=== PATIENT | male | born 2000 | race Caucasian/White ===

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

== ENCOUNTER 2022-07-29 05:45 | Outpatient (CLI) | payer BC, MEDICAID ==
[~2022-07-29] VITALS: Ht 167.6 cm; Wt 82.0 kg
[~2022-07-29 05:45] MED LIST changes: -CATHETER FLUSH 10 ML SYR IVP PRN
== END 2022-07-29 15:58 | disposition home or self-care (01) ==
LOC: PREOP 05:45
PROVIDERS: ATTEND Surgery
DX: Z01.818 Encounter for other preprocedural examination (principal)

== ENCOUNTER 2022-08-01 21:57 | Emergency (ER) | payer BC, MEDICAID ==
[~2022-08-01] VITALS: Ht 167.6 cm; Wt 82.0 kg
[2022-08-01] MEDS ORDERED: LEVO-55 (22:07)
[2022-08-01] MEDS ORDERED: KETOROLAC 30 MG/ML VIAL IVP STA (22:15)
[2022-08-01] MEDS ORDERED: LACTATED RINGERS 1,000 ML IV ONE (22:15)
[2022-08-01 22:21] LABS: BILIRUBIN,URINE NEGATIVE (NEGATIVE); CLARITY,URINE SL CLOUDY; COLOR,URINE YELLOW; GLUCOSE, URINE (UA) NEGATIVE (NEGATIVE); KETONES,URINE NEGATIVE (NEGATIVE); LEUKOCYTE ESTERASE ,URINE NEGATIVE (NEGATIVE); NITRITE,URINE NEGATIVE (NEGATIVE); PROTEIN,URINE NEGATIVE (NEGATIVE)
[2022-08-01 22:28] LABS: AMORPHOUS SEDIMENT,UR LARGE AMOR PHOSPHATE /LPF; SQUAMOUS EPITHELIAL CELL,UR RARE /HPF
[2022-08-01 22:29] LABS: BACTERIA,URINE TRACE /HPF
[2022-08-01 22:34] LABS: BASOPHILS # (AUTO) 0.1 10^3/uL (0.0-0.1); BASOPHILS % (AUTO) 1 % (0-10); EOSINOPHILS # (AUTO) 0.2 10^3/uL (0.0-0.3); EOSINOPHILS % (AUTO) 3 % (0-10); HEMATOCRIT 45 % (40-54); LYMPHOCYTES # (AUTO) 3.6 10^3/uL (1.0-4.0); LYMPHOCYTES % (AUTO) 45 % (12-44); MEAN CORPUSCULAR HEMOGLOBIN 30 pg (25-34); MEAN CORPUSCULAR HGB CONC 34 g/dL (32-36); MEAN CORPUSCULAR VOLUME 88 fL (80-99); MEAN PLATELET VOLUME 10.5 fL (9.0-12.2); MONOCYTES # (AUTO) 0.5 10^3/uL (0.0-1.0); MONOCYTES % (AUTO) 7 % (0-12); NEUTROPHILS # (AUTO) 3.5 10^3/uL (1.8-7.8); NEUTROPHILS % (AUTO) 45 % (42-75); PLATELET COUNT 302 10^3/uL (130-400); WHITE BLOOD COUNT 7.9 10^3/uL (4.3-11.0)
[2022-08-01 22:43] LABS: ALBUMIN 4.7 GM/DL (3.2-4.5); CHLORIDE 102 MMOL/L (98-107); POTASSIUM 3.5 MMOL/L (3.6-5.0); SODIUM 138 MMOL/L (135-145)
[2022-08-01 22:45] LABS: CALCIUM 9.8 MG/DL (8.5-10.1)
[2022-08-01 22:46] LABS: GLUCOSE 90 MG/DL (70-105); TOTAL PROTEIN 8.1 GM/DL (6.4-8.2)
[2022-08-01 22:47] LABS: BILIRUBIN,TOTAL 0.4 MG/DL (0.1-1.0); CARBON DIOXIDE 24 MMOL/L (21-32)
[2022-08-01 22:49] LABS: ALKALINE PHOSPHATASE 41 U/L (40-136); CREATININE SERUM 0.85 MG/DL (0.60-1.30); GFR ESTIMATED 128
[2022-08-01 22:50] LABS: BUN/CREATININE RATIO 16
[2022-08-01 22:52] LABS: ALANINE AMINOTRANSFERASE 23 U/L (0-55)
[2022-08-02] MEDS ORDERED: AZITHROMYCIN 250 MG TAB (ZITHROMAX) PO ONE (00:15)
[2022-08-02] MEDS ORDERED: cefTRIAXone IV/IM 1,000 MG in NS (IVPB) 50 ML IV ONE (00:15)
[2022-08-02] MEDS ORDERED: DOXY100T2 PO (00:18)
[2022-08-02] MEDS ORDERED: KETO10TA PO (00:18)
--- NOTE | 2022-08-02 00:18 | ED GU-Male ---
General Chief Complaint: - Reproductive Stated Complaint: TESTICLE/BLADDER PAIN Nursing Triage Note: c/o testicular pain since 07/27/22 denies injury. seen at clinic 07/29/22 for same. denies difficulty with urination, discharge. Allergies and Home Medications Allergies Coded Allergies: NKANo Known Allergies (Unverified Allergy, Mild, 07/29/22) Patient Home Medication List Levofloxacin (Levofloxacin) 500 Mg Tablet, (Reported) Entered as Reported by: ENID PARKS on 08/01/222206 Last Action: New Order Discontinued Medications Cephalexin Monohydrate (Keflex Susp) 125 Mg/5 Ml Susp, (Reported) Discontinued Reason: No Longer Taking Entered as Reported by: MIGUEL SOSA on 04/28/091709 Promethazine Hcl (Phenergan) 6.25 Mg/5 Ml Btl, (Reported) Discontinued Reason: No Longer Taking Entered as Reported by: MIGUEL SOSA on 04/28/091709 Past Otpcwin-Wlnqsg-Djofqt Hx Patient Social History Tobacco Use?: No Substance use?: No Alcohol Use?: No Pt feels they are or have been: No Immunizations Up To Date Tetanus Booster (TDap): Unknown First/Initial COVID19 Vaccinat: na Seasonal Allergies Seasonal Allergies: Yes Past Medical History Surgery/Hospitalization HX: dental sx Surgeries: Yes (DENTAL) Respiratory: Yes (ALLERGY INDUCED ASTHMA) Asthma Cardiac: No Neurological: No Sexually Transmitted Disease: No Genitourinary: No Gastrointestinal: Yes Gall Bladder Disease Musculoskeletal: No Endocrine: No HEENT: No Cancer: No Psychosocial: Yes (attachment disorder) Anxiety, Depression Blood Disorders: No Adverse Reaction/Blood Tranf: No Physical Exam Vital Signs Vital Signs - First Documented 08/01/22 22:02 Temp 36.7 Pulse 63 Resp 18 B/P (MAP) 131/74 (93) Pulse Ox 99 O2 Delivery Room Air Capillary Refill : Less Than 3 Seconds Height, Weight, BMI Height: '" Weight: lbs. oz. kg; 29.00 BMI Method: Progress/Results/Core Measures Suspected Sepsis SIRS Temperature: Pulse: 63 Respiratory Rate: 18 Laboratory Tests 08/01/22 22:26: White Blood Count 7.9 Blood Pressure 131 /74 Mean: 93 Laboratory Tests 08/01/22 22:26: Creatinine 0.85, Platelet Count 302, Total Bilirubin 0.4 Results/Orders Lab Results Laboratory Tests Test 08/01/22 22:08 08/01/22 22:26 Range/Units Urine Color YELLOW Urine Clarity SL CLOUDY Urine pH 7.0 5-9 Urine Specific [place] 1.010 L 1.016-1.022 Urine Protein NEGATIVE NEGATIVE Urine Glucose (UA) NEGATIVE NEGATIVE Urine Ketones NEGATIVE NEGATIVE Urine Nitrite NEGATIVE NEGATIVE Urine Bilirubin NEGATIVE NEGATIVE Urine Urobilinogen 1.0 < = 1.0 MG/DL Urine Leukocyte Esterase NEGATIVE NEGATIVE Urine RBC (Auto) NEGATIVE NEGATIVE Urine RBC NONE /HPF Urine WBC NONE /HPF Urine Squamous Epithelial Cells RARE /HPF Urine Crystals PRESENT H /LPF Urine Amorphous Sediment LARGE BUSTER PHOSPHATE H /LPF Urine Bacteria TRACE /HPF Urine Casts NONE /LPF Urine Mucus NEGATIVE /LPF Urine Culture Indicated NO White Blood Count 7.9 4.3-11.0 10^3/uL Red Blood Count 5.06 4.30-5.52 10^6/uL Hemoglobin 15.0 13.3-17.7 g/dL Hematocrit 45 40-54 % Mean Corpuscular Volume 88 80-99 fL Mean Corpuscular Hemoglobin 30 25-34 pg Mean Corpuscular Hemoglobin Concent 34 32-36 g/dL Red Cell Distribution Width 13.0 10.0-14.5 % Platelet Count 302 130-400 10^3/uL Mean Platelet Volume 10.5 9.0-12.2 fL Immature Granulocyte % (Auto) 0 % Neutrophils (%) (Auto) 45 42-75 % Lymphocytes (%) (Auto) 45 H 12-44 % Monocytes (%) (Auto) 7 0-12 % Eosinophils (%) (Auto) 3 0-10 % Basophils (%) (Auto) 1 0-10 % Neutrophils # (Auto) 3.5 1.8-7.8 10^3/uL Lymphocytes # (Auto) 3.6 1.0-4.0 10^3/uL Monocytes # (Auto) 0.5 0.0-1.0 10^3/uL Eosinophils # (Auto) 0.2 0.0-0.3 10^3/uL Basophils # (Auto) 0.1 0.0-0.1 10^3/uL Immature Granulocyte # (Auto) 0.0 0.0-0.1 10^3/uL Sodium Level 138 135-145 MMOL/L Potassium Level 3.5 L 3.6-5.0 MMOL/L Chloride Level 102 98-107 MMOL/L Carbon Dioxide Level 24 21-32 MMOL/L Anion Gap 12 5-14 MMOL/L Blood Urea Nitrogen 14 7-18 MG/DL Creatinine 0.85 0.60-1.30 MG/DL Estimat Glomerular Filtration Rate 128 BUN/Creatinine Ratio 16 Glucose Level 90 70-105 MG/DL Calcium Level 9.8 8.5-10.1 MG/DL Corrected Calcium 8.5-10.1 MG/DL Total Bilirubin 0.4 0.1-1.0 MG/DL Aspartate Amino Transf (AST/SGOT) 23 5-34 U/L Alanine Aminotransferase (ALT/SGPT) 23 0-55 U/L Alkaline Phosphatase 41 40-136 U/L Total Protein 8.1 6.4-8.2 GM/DL Albumin 4.7 H 3.2-4.5 GM/DL My Orders Orders - GAGE ZULUAGA DO Ed Iv/Invasive Line Start (08/01/22 22:15) Ct Abd/Pelvis Wo(Kidney Stone) (08/01/22 22:15) Abdomen/Kub 1view (08/01/22 22:15) Cbc With Automated Diff (08/01/22 22:15) Comprehensive Metabolic Panel (08/01/22 22:15) Ua Culture If Indicated (08/01/22 22:15) Ed Iv/Invasive Line Start (08/01/22 22:15) Lactated Ringers (Lr 1000 Ml Iv Solution (08/01/22 22:15) Ketorolac Injection (Toradol Injection) (08/01/22 22:15) Neis Nishant Dna Urine Test (08/01/22 22:15) Chlamydia Trachomatis Urine (08/01/22 22:15) Rocephin 1gm/50 Ml Iv (1xdose) (08/02/22 00:15) Azithromycin Tablet (Zithromax Tablet) (08/02/22 00:15) Medications Given in ED Current Medications Medications Dose Ordered Sig/Nirav Route Start Time Stop Time Status Last Admin Dose Admin Lactated Ringer's 1,000 ml @ 0 mls/hr Q0M ONCE IV 08/01/22 22:15 08/01/22 22:17 DC 08/01/22 22:27 0 MLS/HR Vital Signs/I&O 08/01/22 08/01/22 22:02 22:27 Temp 36.7 36.7 Pulse 63 Resp 18 B/P (MAP) 131/74 (93) Pulse Ox 99 O2 Delivery Room Air 08/02/22 00:00 Intake Total 1000 ml Balance 1000 ml Capillary Refill : Less Than 3 Seconds Blood Pressure Mean: 93 Departure Impression Primary Impression: Testicular pain Disposition: 01 HOME, SELF-CARE Condition: Stable Departure-Patient Inst. Decision time for Depature: 00:15 Referrals: DANA TAPIA (PCP) Primary Care Physician Patient Instructions: Acute Pain, Adult, How to Perform a Testicular Self-Exam Add. Discharge Instructions: LOTS OF CLEAR LIQUIDS YOU MAY PROCEED WITH SURGERY THIS WEEK SCHEDULED All discharge instructions reviewed with patient and/or family. Voiced underst anding. Scripts Ketorolac Tromethamine (Ketorolac Tromethamine) 10 Mg Tablet 10 MG PO Q6H for Pain, #15 TAB Prov: GAGE ZULUAGA DO 08/02/22 Doxycycline Hyclate (Doxycycline Hyclate) 100 Mg Tablet 100 MG PO BID, #20 TAB 0 Refills Prov: GAGE ZULUAGA DO 08/02/22 GAGE ZULUAGA DO August 02, 2022 00:18
[2022-08-02 00:24] VITALS: BP 128/67
--- NOTE | 2022-08-02 08:12 | Diagnostic Imaging Report ---
EXAMINATION: CT abdomen and pelvis without contrast. TECHNIQUE: Multiple contiguous axial images were obtained through the abdomen and pelvis without the use of intravenous contrast. All CT scans use one or more of the following dose optimizing techniques: automated exposure control, MA and/or KvP adjustment based on patient size and exam type or iterative reconstruction. HISTORY: Flank pain COMPARISON: 04/28/2009 FINDINGS: Limited views of the lower thorax are unremarkable. The liver is normal without focal lesion. There is no biliary ductal dilation. Gallbladder is normal. Pancreas is normal. Spleen is normal. Adrenal glands are normal. The kidneys are normal. There is no hydronephrosis. Urinary bladder is normal. Bowel is normal in caliber without obstruction or inflammation. The appendix is normal. No free fluid or air. No abdominal or pelvic lymphadenopathy. Aorta is normal in caliber without aneurysm. There are no suspicious osseus lesions. IMPRESSION: 1. No acute abnormality in the abdomen or pelvis. There is no significant disagreement with the preliminary report. Dictated by: Dictated on workstation # [id number]
--- NOTE | 2022-08-02 08:44 | Diagnostic Imaging Report ---
HISTORY: Abdominal pain TECHNIQUE: Frontal view of the abdomen. COMPARISON: None FINDINGS: No distended loops of bowel are seen. There is no large collection of free air. There is moderate stool in the colon. No acute osseous abnormality is seen. There is a phlebolith in the left pelvis. IMPRESSION: 1. No bowel obstruction or large collection of free air. Moderate stool in colon. Dictated by: Dictated on workstation # [id number]
== END 2022-08-02 00:26 | disposition home or self-care (01) ==
LOC: EDUNIT# 21:57 → ER 22:00
DX: N50.819 Testicular pain, unspecified (principal); Z28.310 Unvaccinated for COVID-19
CPT/HCPCS: 36415; 74018; 74176; 80053; 81000; 85025; 87491; 87591

== ENCOUNTER 2022-08-05 09:58 | Day surgery (SDC) | payer BC, MEDICAID ==
[2022-08-05] VITALS (10 sets, daily range): BP systolic 93–124; BP diastolic 42–68
[~2022-08-05] VITALS: Ht 167.6 cm; Wt 82.0 kg
[~2022-08-05 09:58] MED LIST changes: +DOXY100T2 PO; +KETO10TA PO; +LEVO-55
[2022-08-05] MEDS ORDERED: ceFAZolin INJECTION 2,000 MG ONE (10:21)
[2022-08-05] MEDS ORDERED: NS (IVPB) 50 ML ONE (10:21)
[2022-08-05] MEDS ORDERED: ceFAZolin INJECTION 2,000 MG in NS (IVPB) 50 ML IV ONE (10:30)
[2022-08-05] MEDS ORDERED: MIDAZOLAM 2 MG/2 ML (VERSED) VIAL IV ONE (10:30)
[2022-08-05] MEDS ORDERED: ROCURONIUM 50 MG/5 ML (ZEMURON) VIAL IV ONE (10:31)
[2022-08-05] MEDS ORDERED: LIDOCAINE PF 2% 5 ML (XYLOCAINE) VIAL ONE (10:31)
[2022-08-05] MEDS ORDERED: fentaNYL INJ 100 MCG/2 ML AMP ONE (10:31)
[2022-08-05] MEDS ORDERED: NEOSTIGMINE (BLOXIVERZ ) 1 MG/1ML 10 ML VIAL ONE (10:31)
[2022-08-05] MEDS ORDERED: proPOfol 200 MG/20 ML (DIPRIVAN) VIAL IV ONE (10:31)
[2022-08-05] MEDS ORDERED: GLYCOPYRROLATE 0.2 MG/ML (ROBINUL) 2 ML VIAL ONE (10:31)
[2022-08-05] MEDS ORDERED: MIDAZOLAM 2 MG/2 ML (VERSED) VIAL ONE ×2 (10:31→10:35)
[2022-08-05] MEDS: LACTATED RINGERS 1,000 ML IV PRN ×2 (10:32→11:56)
--- NOTE | 2022-08-05 10:32 | Progress Note-Pre Operative ---
Pre-Operative Progress Note Date H&P Reviewed: August 05, 2022 Time H&P Reviewed: 10:30 History & Physical: H&P Reviewed, Patient Examed, No changes noted Pre-Operative Diagnosis: Biliary Dyskinesia INDERJIT FERNANDEZ APRN August 05, 2022 10:32
[2022-08-05] MEDS ORDERED: HYDR-3817 PO (10:33)
--- NOTE | 2022-08-05 10:34 | Discharge Inst-Surgical ---
D/C Lap Instructions-KIDO Reconcile Patient Problems Problems Reviewed?: Yes New, Converted, or Re-Newed RX: RX on Chart Follow Up Appt in 2 weeks Activity as tolerated No driving for 24 hours No driving while on pain medications Incentive Spirometry use every 2 hours while awake Regular Diet Symptoms to Report: Fever over 101 degree F, Nausea/Vomiting Infection Signs and Symptoms to report: Increased redness, Foul odor of wound, Increased drainage Bathing instructions: May shower Operative Area Clean/Dry; Keep incision clean/dry If any problems/questions: Contact your physician or go to Emergency Room INDERJIT FERNANDEZ APRN August 05, 2022 10:34
[2022-08-05] MEDS ORDERED: ONDANSETRON 4 MG/2 ML (SDV) Z0FRAN IVP PRN ×2 (10:45→13:00)
[2022-08-05] MEDS ORDERED: ACETAMINOPHEN 325 MG TABLET PO PRN (10:45)
[2022-08-05] MEDS ORDERED: morphine INJ 10 MG/ML 1ML (SYR OR VIAL) IVP PRN (10:45)
[2022-08-05] MEDS ORDERED: HYDROcodone/APAP 5 MG/325 MG (LORTAB) TAB PO ONE ×2 (10:45→14:15)
[2022-08-05] MEDS ORDERED: BUP/EPI 0.25% 1:200,000 (MARCAINE) 30 ML VIAL ONE (11:32)
[2022-08-05] MEDS ORDERED: BUP/EPI 0.25% 1:200,000 (MARCAINE) 30 ML VIAL INJ ONE (11:47)
--- NOTE | 2022-08-05 12:25 | Progress Note-Post Operative ---
Post-Operative Progess Note Surgeon (s)/Statistics Manager (s) Surgeon YOAN MUÑOZ MD Statistics Manager: cece wagner FEED PREPARATION OPERATOR Pre-Operative Diagnosis Biliary Dyskinesia Post-Operative Diagnosis same Procedure & Operative Findings Date of Procedure 08/05/22 Procedure Performed/Findings laparoscopic cholecystectomy Anesthesia Type get Estimated Blood Loss Estimated blood loss (mL): minimal Specimens/Packing Specimens Removed gallbladder YOAN MUÑOZ MD August 05, 2022 12:25
[2022-08-05] MEDS ORDERED: SEVOFLURANE (ULTANE) 15 ML INHAL SOLN ONE (12:40)
[2022-08-05] MEDS ORDERED: morphine INJ 10 MG/ML 1ML (SYR OR VIAL) IVP ONE (13:00)
--- NOTE | 2022-08-05 18:14 | OPERATIVE REPORT ---
DATE OF SERVICE: 08/05/2022 PREOPERATIVE DIAGNOSIS: Symptomatic biliary dyskinesia. POSTOPERATIVE DIAGNOSIS: Symptomatic biliary dyskinesia. PROCEDURE: Laparoscopic cholecystectomy. SURGEON: Yoan Muñoz MD HARNESS RIGGER: Good Chinchilla APRN ANESTHESIA: General endotracheal. ESTIMATED BLOOD LOSS: Minimal. FINDINGS: Symptomatic biliary dyskinesia. DISPOSITION: The patient tolerated the procedure well. INDICATIONS: The patient is a 21-year-old male who has had a 1-year history of abdominal bloating, crampy pain in the right upper abdominal quadrant as well as nausea as well as occasional vomiting, usually after eating meals. He states that this was initially mild; however, worsened in frequency and severity over time. He underwent an initial ultrasound, which he did not show any gallstones; however, he then underwent a HIDA scan, which showed a very low ejection fraction of approximately 10% with reproduction of symptoms with the Kinevac analogue consistent with a symptomatic biliary dyskinesia. DESCRIPTION OF PROCEDURE: The patient was brought to the operating room, laid supine on the table. After adequate IV pain and sedative medications and general endotracheal intubation, the abdomen was prepped and draped in standard surgical fashion. A 0.5% Marcaine with epinephrine was used to anesthetize overlying skin in the left upper abdominal quadrant and transverse skin incision made using a #15 blade. An 0 silk suture was applied to the medial aspect of the incision for retraction and Veress needle inserted with a low opening pressure of 0 mmHg. The abdomen was then insufflated to 15 mmHg pressure. The Veress needle removed and a 5 mm XL trocar placed followed by a 5 mm 45-degree angle laparoscope, visualized the peritoneal cavity. A 4-quadrant abdominal exploration was performed. There was a slightly distended gallbladder as well as omental adhesions to the fundus of the gallbladder, no gallbladder wall thickening. Under direct visualization, we then proceeded to place a supraumbilical 10 mm port after the skin and peritoneal lining were anesthetized using 0.5% Marcaine with epinephrine and a transverse skin incision made using #15 blade. In a similar manner, a right upper abdominal quadrant 5 mm port was placed. The adhesions towards the fundus of the gallbladder were then taken down using electrocautery on the hook instrument. The fundus was then retracted anteriorly and superiorly and the patient was then placed in reverse Trendelenburg position as well as plane right side up, left side down. The adhesions were continued to be bluntly dissected as well as using electrocautery on the hook instrument. The hepatoduodenal ligament was then completely dissected using the hook instrument as well as a [place] dissector. The entire critical view of safety was identified including the triangle of Calot as well as the cystic duct and artery as the only 2 structures going into the gallbladder as well as the cystic plate behind the proximal gallbladder. A timeout was then taken and the cystic duct and artery were then clipped proximally and distally and cut with EndoShears. The gallbladder was then dissected off of the liver bed using cautery on the hook instrument with visualization of good hemostasis as well as no leaking ducts of Luschka. The gallbladder was removed through the 10 mm port site using an EndoCatch bag. The 10 mm port site fascia and peritoneum were then closed under direct visualization using a Robb-Brook device and 0 Vicryl suture. The abdomen was desufflated. The remaining ports removed. All skin incisions were closed using 4-0 Monocryl running subcuticular sutures. Wounds were then cleaned and covered with Dermabond. The patient tolerated the procedure well. We will start IV normal pain medication as well as a clear liquid diet. Once he is tolerating clears, has good pain control with oral pain medications, ambulating well, we will discharge him home where he will be instructed to do no heavy lifting or exertion for the next 2 weeks. Job ID: [id number] DocumentID: [id number] Dictated Date: 08/05/2022 12:34:48 Tipple Worker Date: 08/05/2022 18:11:00 Dictated By: YOAN MUÑOZ MD
== END 2022-08-05 14:32 | disposition home or self-care (01) ==
LOC: SDC 09:58
PROVIDERS: ATTEND Surgery
DX: K81.1 Chronic cholecystitis (principal); K82.8 Other specified diseases of gallbladder; K66.0 Peritoneal adhesions (postprocedural) (postinfection)
CPT/HCPCS: 87081; 94664